=== PATIENT | male | born 2000 | race Caucasian/White ===

== ENCOUNTER 2018-11-10 09:38 | Day surgery (SDC) | payer BC ==
[2018-11-10 10:31] LABS: #Basophils 0.1 thou/uL (0.0-0.2); #Eosinphils 0.3 thou/uL (0.0-0.7); #Lymphocytes 4.1 thou/uL (1.20-3.40); #Monocytes 1.2 thou/uL (0.11-0.59); #Neutrophils 4.3 thou/uL (1.40-6.50); %Basophils 1.2 % (0.0-1.0); %Eosinophils 3.1 % (0.0-10.0); %Lymphocytes 40.7 % (28.0-48.0); %Neutrophils 43.1 % (31.0-61.0); Hemoglobin 15.4 g/dL (14.0-18.0); Mean Corpuscular HGB CONC 34.3 g/dL (32.0-36.0); Mean Corpuscular Hemoglobin 31.3 pg (25.0-35.0); Mean Corpuscular Volume 91.3 fL (78.0-98.0); Mean Platelet Volume 6.9 fL (7.4-10.4); Platelet Count 288 thou/uL (130-400); RBC Distribution Width 11.4 % (11.5-14.5); Red Blood Cell (RBC) Count 4.92 mill/uL (4.00-5.20)
[2018-11-10] MEDS ORDERED: ISOVUE-370 76%-LOCM 1 ML ONE (10:44)
[2018-11-10] MEDS ORDERED: Iopamidol 370 76% 50 ML VIAL FS ONE (10:44)
[2018-11-10 10:53] LABS: ALT (SGPT) 17 U/L (8-55); AST (SGOT) 13 U/L (5-34); Albumin 4.4 g/dL (3.5-5.0); Alkaline Phosphatase 79 U/L (Less than 750); Anion Gap 12 mmol/L (10-20); BUN (Urea Nitrogen) 11 mg/dL (8.9-20.6); Bilirubin, Total 0.6 mg/dL (0.2-1.2); Calc. Creatinine Clearance 0 mL/min (70-130); Calcium 9.6 mg/dL (7.8-10.44); Carbon Dioxide 26 mmol/L (22-29); Chloride 103 mmol/L (98-107); Estimated GFR-MDRD Greater than 90; Globulin 3.1 g/dL (2.4-3.5); Glucose 103 mg/dL (70-105); Lipase 7 U/L (8-78); Potassium 4.1 mmol/L (3.5-5.1); Protein, Total 7.5 g/dL (6.0-8.3); Sodium 137 mmol/L (136-145)
[2018-11-10] MEDS ORDERED: Ondansetron PF 4 MG/2 ML Vial ONE ×2 (10:59→11:32)
[2018-11-10] MEDS ORDERED: Morphine 4 MG/ML VIAL ONE (10:59)
[2018-11-10 11:30] LABS: Bilirubin Negative (Negative); Blood, Urine Negative (Negative); Clarity CLEAR (Clear); Glucose, Urine (Dipstick) Negative (Negative); Leukocyte Negative (Negative); Nitrite Negative (Negative); Protein, Urine (Dipstick) Negative (Neg-Trace); Specific Gravity, Urine 1.026 (1.002-1.036)
[2018-11-10] MEDS ORDERED: PROPOFOL 200 MG/20 ML VIAL ONE (11:32)
[2018-11-10] MEDS ORDERED: Lidocaine 1% PF 5 ML VIAL ONE (11:32)
[2018-11-10] MEDS ORDERED: PHENYLEPHRINE-NS 100 MCG/ML 10 ML SYRINGE ONE (11:32)
[2018-11-10] MEDS ORDERED: Succinylcholine Chloride 20 MG/ML 10 ml SYRINGE FS ONE (11:32)
[2018-11-10] MEDS ORDERED: Dexamethasone 20 MG/5 ML VIAL ONE (11:32)
[2018-11-10] MEDS ORDERED: Rocuronium Bromide 10 MG/ML (10ML VIAL) ONE (11:32)
[2018-11-10] MEDS ORDERED: Glycopyrrolate 0.2 MG/ML 5 ML SYRINGE ONE (11:32)
--- NOTE | 2018-11-10 13:22 | CT ---
CT ABDOMEN AND PELVIS WITH CONTRAST: Date: 11/10/18 HISTORY: Abdominal pain. COMPARISON: None. FINDINGS: The lung bases are clear. No pericardial effusion. There is acute appendicitis with an appendicolith in the mid appendix. No significant periappendiceal fluid collection. The appendix measures up to 1.4 cm in size. No free air along the appendiceal tip. There is a nonobstructive calculus inferior left renal collecting system measuring 2.0 mm. No hydrone phrosis. There is a hypodensity superior pole right kidney posterior cortex, likely a cyst, although too small to fully characterize. Live, gallbladder, and spleen are unremarkable. There is some reactive right colonic and ileocolonic lymph nodes. There is subcortical gas in the left sacrum at S2 of the SI joint which is degenerative in nature. IMPRESSION: Acute appendicitis with appendicolith in the mid appendiceal body. There is very small volume adjacen t fluid. No free air. The appendix is retrocecal and extends medially and caudally into the pelvis. Dr. Lassiter notified of findings at 1220 hours. CODE CR. POS: [facility]
[2018-11-10] MEDS ORDERED: Lidocaine 2% Jelly 5 ML TUBE ONE (14:02)
[2018-11-10] MEDS ORDERED: Midazolam HCl 2 mg/2 ml Vial ONE ×2 (14:02→16:36)
[2018-11-10] MEDS ORDERED: Fentanyl 250 MCG/5 ML VIAL ONE (14:02)
--- NOTE | 2018-11-10 14:12 | HP ---
HISTORY OF PRESENT ILLNESS: Mr. Chua is a 18-year-old man, who presented with 3-day history of what started as a periumbilical abdominal pain, which soon settled in the right lower quadrant for it as persisted. The pain is associated with some nausea, but no emesis. The patient denies any fevers or chills. Last bowel movement and flatus was yesterday. The patient actually had a bite of the sandwich 4 hours prior to presentation to the Emergency Department. PAST MEDICAL HISTORY: He denies any previous medical problems. PAST SURGICAL HISTORY: He denies any previous major surgeries except for dental extraction. SOCIAL HISTORY: He is single, lives independently. He denies any cigarette smoking, but admits to occasional intake of ethanol in moderate amounts. He admits to smoking marijuana rarely so. Otherwise, no other illicit drug abuse. FAMILY HISTORY: The patient denies any family history of diabetes mellitus, hypertension, heart disease, cancer, or inflammatory bowel disease. PREHOSPITALIZATION MEDICATIONS: None. ALLERGIES: TO SULFA DRUGS. REVIEW OF SYSTEMS: A 10-point review of systems essentially unremarkable except as stated in past medical history and chief complaint. PHYSICAL EXAMINATION: GENERAL: Reveals a 18-year-old normally developed man, who is otherwise coherent, interactive, and appears stated age. The patient is alert and oriented x3, appears to be in no acute distress at the time of my evaluation. HEART: Reveals regular rate and rhythm. No murmurs or gallops auscultated. LUNGS: Clear to auscultation bilaterally. Breathing, regular and nonlabored. ABDOMEN: Soft and obese. He has right lower quadrant tenderness at McBurney's. He has a positive Rovsing sign. Liver and spleen otherwise nonpalpable below costal margins. EXTREMITIES: Reveal 2 +radial and pedal pulses bilaterally. No ankle edema is present. NEUROLOGIC: Reveals no focal deficits present. LABORATORY DATA: Pertinent laboratory findings today include a CBC with 10,000 white blood cells, hemoglobin and hematocrit 15.4 and 45.0 respectively. Platelet count is 288,000. Metabolic profile; sodium 137, potassium 4.1, chloride is 103, bicarb is 26, BUN 11, creatinine 0.92, glucose 103, total bilirubin 0.6, and AST and ALT 13 and 17 respectively. Serum lipase is 7. I have personally reviewed the CT scan of the abdomen and pelvis, which is remarkable for dilated appendix at 14 mm in diameter with an appendicolith and associated periappendiceal fat stranding. No pneumoperitoneum or free fluid is noted. IMPRESSION: Acute appendicitis. RECOMMENDATIONS: Laparoscopic appendectomy. I have advised the patient of the above findings and recommendations. I have also informed him of the risks and benefits of the proposed surgery to include, but not limited to bleeding, infection, injury to bowel or surrounding structures. The patient indicates understanding of information I provided today. Answered his questions. The patient is going to consent for this admission and surgical intervention. Job ID: [id number]
[2018-11-10] MEDS ORDERED: Bupivacaine/Epinephrine 0.25% 30 ML VIAL ONE (14:13)
[2018-11-10] MEDS ORDERED: cefOXitin Sodium/Dextrose,Iso 2 GM in Premix Bag 1 BAG IVPB SCH (14:45)
[2018-11-10] MEDS ORDERED: SUGAMMADEX SODIUM 200 MG/2 ML VIAL ONE (16:33)
[2018-11-10] MEDS ORDERED: Ketorolac Tromethamine 30 MG/ML VIAL ONE (16:41)
[2018-11-10] MEDS ORDERED: Promethazine HCl 25 MG/ML VIAL ONE (16:41)
[2018-11-10] MEDS ORDERED: Fentanyl 100 MCG/2 ML VIAL ONE (16:41)
[2018-11-10] MEDS ORDERED: HYDROcodone/Acetaminophen 5/325 mg Tablet ONE (18:12)
--- NOTE | 2018-11-10 22:38 | OP ---
DATE OF PROCEDURE: 11/10/2018 PREOPERATIVE DIAGNOSIS: Acute appendicitis. POSTOPERATIVE DIAGNOSIS: Acute appendicitis. OPERATION PERFORMED: Laparoscopic appendectomy. ANESTHESIA: General endotracheal. ESTIMATED BLOOD LOSS: 5 mL. FLUIDS GIVEN: 1600 mL crystalloids. COUNTS: Sponge and instrument counts were verified as correct x2. COMPLICATIONS: None apparent at the time of operation. INDICATIONS FOR OPERATION: A 18-year-old man, presented with abdominal pain. Clinical radiographic examination was consistent with acute appendicitis, for which the patient was brought to the operating room for appendectomy. Findings are consistent with suppurative, but nonperforated appendix in the usual anatomic location. DESCRIPTION OF PROCEDURE: Informed consent was obtained from the patient who was brought to the operating room and placed in supine position. Following general anesthesia, abdomen was sterilely prepped and draped in the usual fashion. Skin below the umbilicus was infiltrated with 0.25% Marcaine with epinephrine. A small curvilinear infraumbilical incision was made. Umbilical stalk was grasped with Polo and elevated. Veress needle was inserted through the incision and placed in the peritoneal cavity through which the abdomen was insufflated with 3 L of CO2 gas. Intraabdominal pressure noted at 3 mmHg. Following abdominal insufflation, Veress needle was removed and replaced with a 5 mm trocar introduced using a Visiport under laparoscopy. Laparoscopy confirmed proper placement of the port. No injuries to underlying structures. Additional laparoscopy reveals the right lower quadrant partially encased by omental adhesions. Under direct laparoscopy, 5 mm suprapubic and left lower quadrant ports were placed after the overlying skin were infiltrated with 0.25% Marcaine with epinephrine and appropriate incision was made. The patient was placed in a Trendelenburg position, rotated to his left. I introduced Prestige grasper through the left lower quadrant port site using this to bluntly take down omental adhesions to reveal suppurative appendix in the usual anatomic location. Endo Joaquín forceps was then introduced through the suprapubic port, grasping the appendix, which was elevated. I used LigaSure device introduced through the left lower quadrant port site to take down the mesoappendix at the base with good hemostasis. The appendix was then divided at the appendiceal-cecal junction between endo-loops. The suppurative appendix was delivered off the abdominal cavity using the EndoCatch. Operative site was inspected for good hemostasis. Findings of no other pathology, laparoscopy was terminated. Fascia of the left lower quadrant port was closed using 0 Vicryl suture and Endoclosure device on the laparoscopy. The abdomen was desufflated. All ports and instruments were removed and accounted for. Skin incision was closed using 4-0 Monocryl suture in subcuticular fashion. Dermabond was applied over incisional closure. The patient tolerated the operation without any apparent complication and was returned to recovery room in satisfactory condition. Job ID: [id number]
== END 2018-11-10 19:05 | disposition home or self-care (01) ==
LOC: ERS 09:38 → SDC/OP 13:14
PROVIDERS: ATTEND Surgery
PROC: 0DTJ4ZZ Resection of Appendix, Percutaneous Endoscopic Approach (ICD-10-PCS; principal; 2018-11-10)
DX: K35.30 Acute appendicitis with localized peritonitis, without perforation or gangrene (principal); Z88.2 Allergy status to sulfonamides
CPT/HCPCS: 74177; 80053; 81003; 83690; 85025; 88304; 96361; 96374; 96375; J1100; J1885; J2001; J2250; J2270; J2405; J2550; J2704; J3010; Q9966; Q9967